=== PATIENT | male | born 1950 | race Caucasian/White ===

== ENCOUNTER 2020-04-18 10:07 | Emergency (ER) | payer MEDICARE, MEDICAID, SELFPAY ==
[2020-04-18] VITALS (7 sets, daily range): BP systolic 103–121; BP diastolic 70–83; PULSE 56–79; RESP 14–17; TEMP 36.4; O2SAT 95–100; BMI 21.7
--- NOTE | 2020-04-18 10:38 | CT_ITS ---
STUDY: CT BRAIN WITHOUT CONTRAST REASON FOR EXAM: Male, 69 years old. Change in mental status, combative and agitated RADIATION DOSAGE (If Supplied By Facility): CTDIvol = ( 29.71 ) mGy, DLP = ( 560.09 ) mGycm TECHNIQUE: Transaxial CT imaging of the brain was performed without administration of intravenous contrast material. Individualized dose optimization techniques were used for this CT. COMPARISON: No relevant priors. FINDINGS: Normal soft tissue structures. Normal calvarium. There is moderate cerebral atrophy with widening of the extra-axial spaces and ventricular dilatation. There are areas of decreased attenuation within the white matter tracts of the supratentorial brain, consistent with microvascular disease changes. Normal basal ganglia and thalami. Normal brainstem. Normal cerebellum. There is no intracranial hemorrhage. There are no findings of an acute ischemic infarction. Normal visualized paranasal sinuses. CT/Brain/Head without Contrast IMPRESSION: Chronic involutional changes of the brain. Electronically Signed: Julito Ma, at 12:12 EDT , Service support ,
--- NOTE | 2020-04-18 10:38 | ED.DCSUM_ITS ---
- ER Visit Summary Date of Service: 04/18/20 Chief Complaint: Agitation and combativeness History of Present Illness: The patient is a 69 M who presents with agitation that became worse today. Patient lives in an extended care facility due to his dementia. Patient apparently was combative at the extended care facility. Patient reportedly was yelling kill, kill, kill. EMS reports the patient was given a dose of Ativan and he was more calm and cooperative. Patient is a poor historian due to his dementia. Physical Examination: Vital signs are stable. Patient is afebrile. Patient is in no acute distress. Oral mucosa is pink and moist. Neck is supple. Trachea is midline. There is no JVD. Heart was regular rate and rhythm. Lungs are clear and equal bilaterally. Abdomen is soft and nontender. Cranial nerves II through XII are intact. There are no focal motor or sensory deficits. Patient is only alert and oriented to person. Test Results: CBC and comprehensive metabolic profile were obtained and were within normal limits. Urine tox screen and serum alcohol level were negative. CT scan of the brain was obtained. There are chronic changes but no acute intracranial abnormality. EKG shows normal sinus rhythm with a rate of 63. There are no acute ST or T wave changes. Case was discussed with [facility]. They recommended obtaining a COVID swab. This was done and is pending. Emergency Department Course and Treatment: Patient was given a dose of Ativan initially. Patient was less combative and was resting comfortably. Patient then became more agitated later on. Patient was given a dose of Haldol. Patient had minimal improvement with this. Patient was given a repeat dose of Ativan. Patient will be transferred to [facility] Edward-psych unit. Disposition: Transfer to [facility] Impression: 1. Agitation 2. Combative behavior This note was generated with [employer] software. It may contain incorrect words, spelling, and punctuation that were not noted in review of the chart prior to signing ED Disposition - Plan for ED Patient: Disposition: Psychiatric Hospital or Unit Diagnosis: Agitation, Combative behavior Referrals: Eloy Jorge MD [Primary Care Provider] -
--- NOTE | 2020-04-18 10:43 | ED.RN ---
pt is not suicidal, pt needs close observation for behavioral and safety.
[2020-04-18] MEDS: LORazepam 2 MG/ML Syringe IM ×2 (10:54→18:35)
--- NOTE | 2020-04-18 11:39 | ED.RN ---
nurse 1:1 for behavior and safety. at bedside. expressed concerns addy his behavior got worse when moving to [facility], due to the change itself.Also expressed concerns that ativan makes him worse. pt resting in bed with no distress noted.
[2020-04-18 12:49] LABS: Absolute Lymphocyte Count 1.37 X10^3/uL (0.83-4.51); Absolute Neutrophil Count 4.4 X10^3/uL (2.0-7.7); Basophil# 0.06 X10^3/uL; Basophil% 0.9 % (0-1); Eosinophil# 0.46 X10^3/uL; Eosinophils% 6.6 % (0-5); Hematocrit 35.3 % (40-54); Hemoglobin 11.5 g/dL (13.0-16.5); Lymphocyte # 1.37 X10^3/ul (4.0); Lymphocyte % 19.7 % (19-41); Mean Corp Hgb Conc 32.6 g/dL (32-36); Mean Corpuscular Hgb 32.2 pg (27.0-32.0); Mean Corpuscular Volume 98.9 fL (80-94); Mean Platelet Vol. 9.8 fl (6.2-12.0); Monocyte# 0.61 X10^3/uL; Monocyte% 8.8 % (0-10); NRBC Flagged by Analyzer 0 % (0-5); Neutrophil % 63.4 % (47-70); Platelet Count 227 K/mm3 (150-450); RBC Distribution Width CV 14.1 % (11.6-14.6); RBC Distribution Width SD 51.6 fl (35.1-43.9); Red Blood Count 3.57 M/mm3 (4.6-6.2); White Blood Count 6.9 K/mm3 (4.4-11.0)
--- NOTE | 2020-04-18 12:49 | CM.ED ---
Social Work Consult: Mental Health Informant: Dr. Blackburn Chief Complaint: Patient has been agitated and combative with staff at senior living facility ([facility]). [facility] recommending for patient to be evaluated for paige-psych placement. Marital/Social History: to [employer] for the past 33 years. Living Situation: Was living at home with spouse prior to two weeks ago. Patient spent one week at [facility] and now has spent a week at [facility]. Patient spouse state that patient is independent for mobility and does not use any durable medical equipment. Support/Resources: No active community supports. Patient spouse was main caregiver. Education/Employment: Retired. Worked in manufacturing. Prior to diagnosis of Dementia in 2011 patient did not have any cognitive deficits or difficulties. Mental Health Treatment/History: None. Diagnosed with Dementia since 2011. No history of inpatient psychiatric placements. Abuse Issues: Unable to assess Substance Abuse/use: None Risk to Self/Others: Unable to complete suicide assessment due to patient being confused. Patient states to have kill me. Mental Status Exam: Patient is a poor historian. Patient yelling out at staff kill me, kill me. Patient trying to get out of bed. Patient with 1:1 sitter due to behaviors. Assessment: Assessment completed with patient spouse due to patient confusion. Patient spouse updated on [facility] recommendation for paige-psych placement. Per patient spouse, patient was maybe going to go to a paige-psych facility from [facility] but was then cleared to discharge to the [facility]. Patient states that things have not been going well as the [facility] as patient has been agitated. Patient spouse states that patient agitation was the reason for why patient was brought to [facility]. Patient states that patient has had 3 outburst over the andie few months. Patient spouse states to typically be able to manage patient in the home it you catch it early. Patient spouse calm and collected. Support provided. Collaborating with Dr. Blackburn. Patient pending continued medical clearance. Plan to be determined. Will continue to follow. MELANIE Pizarro
[2020-04-18 13:00] LABS: Anion Gap 2 (5-15); BUN 23 mg/dL (7-18); BUN/Creat Ratio 24.5 RATIO (10-20); Calcium,Total 8.7 mg/dL (8.5-10.1); Chloride 111 mmol/L (98-107); Creatinine, Serum 0.94 mg/dL (0.70-1.30); EST Glomerular Filtration Rate 85 mL/min (>60); Est Glom Filt Rate - Afr Amer 103 mL/min (>60); Estimated Creatinine Clearance 71.92 ml/min; Glucose 92 mg/dL (74-106); Potassium 4.2 mmol/L (3.5-5.1); Sodium Level 143 mmol/L (136-145)
[2020-04-18 13:12] LABS: Alcohol, Blood (Medical)-Serum < 3.0 mg/dL
[2020-04-18 13:16] LABS: Amphetamine Urine VISTA NEGATIVE (<1000 ng/mL); Barbiturate Urine VISTA NEGATIVE (< 200 ng/mL); Benzodiazepine Urine VISTA NEGATIVE (< 200 ng/mL); Cocaine Urine VISTA NEGATIVE (< 300 ng/mL); Ecstacy Urine VISTA NEGATIVE (< 500 ng/mL); Methadone Urine VISTA NEGATIVE (< 300 ng/mL); PCP Urine VISTA NEGATIVE (< 25 ng/mL); THC Urine VISTA NEGATIVE (< 50 ng/mL); Vista UDS pH Range 7
--- NOTE | 2020-04-18 13:41 | EKG12_ITS ---
Test Reason : MENTAL HEALTH Blood Pressure : / mmHG Vent. Rate : 063 BPM Atrial Rate : 063 BPM P-R Int : 192 ms QRS Dur : 070 ms QT Int : 432 ms P-R-T Axes : 085 010 035 degrees QTc Int : 442 ms Normal sinus rhythm Normal ECG Confirmed by GERMAN MUELLER, JASMIN ([id number]), telegraph editor TRITSEN GONZALEZ ([id number]) on 04/24/2020 10:17:03 AM Referred By: KEN Confirmed By:JASMIN PORTER MD
--- NOTE | 2020-04-18 13:49 | CM.ED ---
Social Work Patient medically cleared per Dr. Blackburn. Collaborating further with patient spouse. Patient spouse is wanting referral to be made to [facility] as patient was recently at [facility]. Telephone call to [facility]. [facility] requesting further medical work-up to be able to accept. Updated Dr. Blackburn. This social worker masters to fax clinical chart to [phone] when results are back. Patent nurse updated on above. Fide Palacios MSW, MELANIE
[2020-04-18 13:50] LABS: Bacteria 0 SEEN /hpf (None Seen); Mucous, Urine 0 SEEN /hpf (<or=2+); Red Blood Cells-Urine 0 SEEN /hpf (0-5); Squamous Epithelial Cells - UA 0 SEEN /hpf (0-5); White Blood Cells 0 SEEN /hpf (0-5)
[2020-04-18 14:02] LABS: Color, Urine Straw (Yellow); Glucose, Dipstick Normal (Normal); Ketone-Dipstick Negative (Negative); Leukocyte Esterase-Dipstick Negative /ul (Negative); Nitrite-Dipstick Negative (Negative); Occult Blood-Urine Negative /ul (Negative); Protein-Dipstick Negative (Negative); Specific Gravity, Urine 1.015 (1.002-1.030); Urine Bilirubin Dipstick Negative (Negative); Urine Clarity Clear (Clear); Urine Urobilinogen Normal (Normal)
--- NOTE | 2020-04-18 14:15 | RAD_ITS ---
STUDY: X-RAY CHEST REASON FOR EXAM: Male, 69 years old. Mental health, violent/combative behavior TECHNIQUE: Single AP portable view of the chest. COMPARISON: None. FINDINGS: Minimal degree of increased linear markings at the left lung base suggestive of atelectasis. There is no demonstrated pleural abnormality. Normal size heart. Normal mediastinum and jeff. Normal visualized pulmonary arteries. There is atherosclerotic calcification of the aortic arch with tortuosity. There are diffuse degenerative changes of the visualized thoracic spine. Normal visualized ribs, clavicles, and shoulders. There is no demonstrated abnormality of the visualized soft tissue structures of the upper abdomen. RAD/Chest 1 View (Portable) IMPRESSION: Minimal degree of increased markings at the left lung base suggestive of linear atelectasis. Electronically Signed: Julito Ma, at 14:30 EDT , Service support ,
--- NOTE | 2020-04-18 15:30 | CM.ED ---
Social Work Clinical information faxed to [place]. Pending review. Fide Palacios MSW, MELANIE
--- NOTE | 2020-04-18 16:12 | ED.RN ---
[facility] updated on pt status.
[2020-04-18 16:48] LABS: ALB/GLOB Ratio 1.1 RATIO (0.9-2.4); AST(SGOT) 36 U/L (15-37); Alanine Aminotransfer ALT/SGPT 40 U/L (16-61); Albumin, Serum 3.2 g/dL (3.2-5.0); Alkaline Phosphatase 66 U/L (45-117); Anion Gap 2 (5-15); BUN 23 mg/dL (7-18); BUN/Creat Ratio 25.6 RATIO (10-20); Calcium,Total 8.7 mg/dL (8.5-10.1); Chloride 111 mmol/L (98-107); EST Glomerular Filtration Rate 90 mL/min (>60); Est Glom Filt Rate - Afr Amer 108 mL/min (>60); Estimated Creatinine Clearance 75.12 ml/min; Globulin 2.8 g/dL (2.2-4.2); Glucose 91 mg/dL (74-106); Potassium 4.2 mmol/L (3.5-5.1); Sodium Level 142 mmol/L (136-145)
[2020-04-18 17:33] LABS: Probe Check PASS; Specimen Processing Control PASS
--- NOTE | 2020-04-18 17:58 | ED.RN ---
PT HAD FALL IN ROOM WHILE TRYING TO AMBULATE WITHOUT ASSISTANCE. ASSESSMENT COMPLETED, DR. MILLER, CHARGE NURSE AND PRIMARY RN MADE AWARE. NO APPARENT INJURY NOTED. BED LINENS CHANGES, INCONTINENCE CARE PROVIDED.
[2020-04-18] MEDS: Haloperidol Lactate 5 MG/ML Vial 2 MG IM (18:16)
--- NOTE | 2020-04-18 18:16 | CM.ED ---
Social Work Telephone call from [facility]. Patient accepted. [facility] requesting [facility] [facility] to be faxed prior to providing admitting information. [place] [facility] faxed. Fide ANG, MELANIE
--- NOTE | 2020-04-18 18:34 | CM.ED ---
Social Work Updated medical team and patient spouse, Obdulia on patient acceptance to [facility]. Obdulia voices to be patient health care power of litigation attorney and denies currently having paperwork with Ob[facility]. Obdulia encouraged to bring in documents to hospital when Obdulia gets a chance to be able to put on file. Will continue to follow. Waiting return phone call from [facility] with accepting information. Fide ANG, MELANIE
--- NOTE | 2020-04-18 19:41 | CM.ED ---
Social Work Telephone call to [facility]. [facility] confirms to have received copy of pink slip and to be currently waiting room assignment for patient. [facility] to call this social service director when room assignment is obtained. Fide ANG, MELANIE
--- NOTE | 2020-04-18 20:03 | CM.ED ---
Social Work Telephone call from [facility]. Patient accepted by Dr. Calero. Nurse to call report to [phone]. Patient admitted to [facility] room [address]. Updated patient spouse and medical team. Fide Palacios MSW, MELANIE
== END 2020-04-18 20:46 ==
PROVIDERS: Emergency Provider Emergency Medicine; PCP Family Medicine
DX: R45.1 Restlessness and agitation (principal); F03.90 Unspecified dementia, unspecified severity, without behavioral disturbance, psychotic disturbance, mood disturbance, and anxiety; Z79.899 Other long term (current) drug therapy
CPT/HCPCS: 70450; 71045; 80048; 80053; 80307; 80320; 81001; 85025; 87635; 93005; 96372; 99285; C9803; P9612; G0480; U0003